=== PATIENT | male | born 2005 | race African-American/Black ===

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

== ENCOUNTER 2025-01-22 19:32 | Emergency (ER) | payer BC, MEDICAID ==
[~2025-01-22] VITALS: Ht 180.3 cm; Wt 81.0 kg
[~2025-01-22 19:32] MED LIST: ROBITUSSIN; TYLENOL
[2025-01-22 19:44] VITALS: O2SAT 97
[2025-01-22 20:10] VITALS: TEMP 36.8; O2SAT 98
[2025-01-22 21:03] VITALS: BP 126/67; PULSE 67; RESP 17
[2025-01-22] MEDS: IBUPROFEN 400MG TABLET PO ONE (21:03)
[2025-01-22] MEDS ORDERED: AMOX1TAB16 MT (21:17)
[2025-01-22] MEDS ORDERED: BO1 TP (21:17)
== END 2025-01-22 21:32 | disposition home or self-care (01) ==
LOC: ER 19:32
DX: S61.452A Open bite of left hand, initial encounter (principal); Z79.899 Other long term (current) drug therapy; W54.0XXA Bitten by dog, initial encounter; Y93.89 Activity, other specified; Y92.89 Other specified places as the place of occurrence of the external cause; Y99.8 Other external cause status
CPT/HCPCS: 73130; 99283